=== PATIENT | female | born 1965 | race Caucasian/White ===

== ENCOUNTER → 2019-07-14 14:07 | Outpatient (CLI) | payer BC, SELFPAY ==
--- NOTE | ~2019-07-14 | US_ITS ---
EXAMINATION: US transvaginal EXAM DATE: 07/14/2019 15:00 INDICATION: Abnormal uterine bleeding. TECHNIQUE: Pelvic transvaginal sonogram was performed. There are multiple grayscale and Doppler imag es available for interpretation. There is no prior study for comparison. FINDINGS: Uterus measures 9.9 x 5.6 x 6.5 cm, with a focal region in the lower uterine segment measu ring 3 cm likely a fibroid Endometrial stripe measures 7 mm, within normal limits. There is no free pelvic fluid. Right adnexa: The right ovary is normal in size and morphology. Left adnexa: The left ovary is normal in size and morphology. IMPRESSION: 1. Borderline thickened endometrium at 7 mm. Consider follow-up. If symptoms persist, consider histo logic correlation. 2. Lower uterine segment fibroid. Reviewed, dictated and finalized at location B. [employer] AIDE IMPRESSION: 1. Borderline thickened endometrium at 7 mm. Consider follow-up. If symptoms p ersist, consider histologic correlation. 2. Lower uterine segment fibroid.
== END ==
PROVIDERS: Visit Provider Obstetrics & Gynecology
DX: N93.8 Other specified abnormal uterine and vaginal bleeding (principal); D25.9 Leiomyoma of uterus, unspecified
CPT/HCPCS: 76830

== ENCOUNTER 2019-08-31 13:46 | Outpatient (CLI) | payer BC, SELFPAY ==
[2019-08-31 14:22] LABS: Hematocrit 33.6 % (37.0-47.0); Hemoglobin 9.7 g/dL (12.0-15.0)
== END 2019-08-31 13:47 | disposition home or self-care (01) ==
PROVIDERS: Visit Provider Anesthesiology
DX: D64.9 Anemia, unspecified (principal)
CPT/HCPCS: 36415; 85014; 85018

== ENCOUNTER 2019-09-02 00:15 | Day surgery (SDC) | payer BC, SELFPAY ==
[2019-08-30 15:17] VITALS: BMI 27.5
[2019-09-02 06:05] VITALS: BP 111/61; PULSE 74; RESP 20; TEMP 36.1; O2SAT 99
[2019-09-02] MEDS: LACTATED RINGERS 1,000 ML 30 ML IV CONT (06:30)
--- NOTE | 2019-09-02 06:42 | WPDANESEPPF ---
Anes - Initial Pre Proc Eval Procedure: Operation Date: 09/02/19 07:30 Proposed Procedures p Hysteroscopy, Myosure, Cathleen Ablation - Timothy Ashton MD Date/Time: 09/02/19 06:42 Surgeon: Timothy Ashton MD Pre Op Diagnosis: anemia, mennorrhaghia, fibroids Patient Data Age: 54 Gender: F Height: 5 ft 5 in Weight: 75.7 kg Allergies Allergy/AdvReac Type Severity Reaction Status Date / Time No Known Allergies Allergy Verified 09/02/19 06:17 Home Medications Medication Instructions Recorded Confirmed Type cetirizine [Zyrtec] 10 mg PO DAILY 08/30/19 09/02/19 History norgestimate-ethinyl estradiol 1 tablet PO DAILY 08/30/19 09/02/19 History [Previfem] Patient hx anesthesia problems: none Family hx anesthesia problems: none [facility] Past Medical History Medical History (Updated 09/02/19 @ 06:42 by Keaton Gaffney MD) Anemia Overweight Surgical History Surgical History (Updated 09/02/19 @ 06:43 by Keaton Gaffney MD) H/O total hip arthroplasty Anes - Eval Final PreProcedure Day of Procedure 09/02/19 06:42 Patient weight: overweight Heart: regular rate and rhythm Lungs: clear to auscultation Airway: Mallampati scale class II Neurological: alert and oriented Last oral intake: >/= 8 hours ASA classification: II Emergent: no Anesthetic plan: proceed Anesthesia type and monitoring: general GIVS and standard monitoring Informed Consent: The patient's anesthetic plan and its attendant risks and benefits were discussed with the patient/family/POA. Questions were solicited and answers provided to the satisfaction of the patient/family/POA.
--- NOTE | 2019-09-02 07:18 | P.HP_ITS ---
History of Present Illness History of Present Illness Consent: Risks, benefits, and alternatives have been discussed and questions answered. Patient agrees to proceed with procedure. Chief complaint: anemia, mennorrhaghia, fibroids Narrative: George Neri is a 54 year old female presented to the office with heavy cycles. Hysteroscopy showed a lower uterine fibroid. Patient currently taking ocp and iron to control anemia. Last hgb 9.0 with colton atment PMFSH Past Medical History Medical History Anemia Overweight Surgical History Surgical History H/O total hip arthroplasty Meds Home Medications and Allergies Home Medications Medication Instructions Recorded Confirmed Type cetirizine [Zyrtec] 10 mg PO DAILY 08/30/19 09/02/19 History norgestimate-ethinyl estradiol 1 tablet PO DAILY 08/30/19 09/02/19 History [Previfem] Allergies Allergy/AdvReac Type Severity Reaction Status Date / Time No Known Allergies Allergy Verified 09/02/19 06:17 Vital Signs Vital Signs - 24 hr 09/02/19 06:05 Temperature 36.1 C L Pulse Rate 74 Respiratory Rate 20 Blood Pressure 111/61 Pulse Oximetry 99 Exam Const: General: no acute distress GI: GI Palp: Yes Soft to palpation : External Female Exam: normal external appearance Assessment and Plan Assessment and plan (1) Perimenopausal menorrhagia: Onset Date: ~05/2019 Code(s): N92.4 - Excessive bleeding in the premenopausal period Status: Acute Assessment and Plan: plan hysteroscopy with novasure and jessie ablation. risk and benefits reviewed with patient in detail.
--- NOTE | 2019-09-02 08:11 | SUR.OPER ---
ebl:5cc
[2019-09-02] MEDS: KETOROLAC 30 MG/ML VIAL (*BKC) IM (08:14)
[2019-09-02 08:22] VITALS: BP 107/66; PULSE 59; RESP 14; O2SAT 100
[2019-09-02 08:45] VITALS: BP 107/54; PULSE 56; RESP 14; O2SAT 100
[2019-09-02 09:15] VITALS: BP 114/48; PULSE 55; RESP 14
--- NOTE | 2019-09-02 13:45 | OP_ITS ---
DATE OF PROCEDURE: 09/02/2019 PREOPERATIVE DIAGNOSES: 1. Fibroid. 2. Anemia. 3. Menorrhagia. POSTOPERATIVE DIAGNOSES: 1. Fibroid. 2. Anemia. 3. Menorrhagia. PROCEDURE PERFORMED: Hysteroscopy with MyoSure and Cathleen ablation. SURGEON: Timothy Ashton M.D. ANESTHESIA: MAC with paracervical block. COMPLICATIONS: None. ESTIMATED BLOOD LOSS: 10 cc. DESCRIPTION OF PROCEDURE: The patient was taken to the operating room with IV running, prepped and draped in the normal sterile fashion, placed in the dorsal lithotomy position. Hilmar speculum was placed into the vagina. Anterior lip of the cervix was grasped with a single-tooth tenaculum. Uterus was sounded to 8 cm. Cervical length noted to be 4 for a uterine cavity of 4 cm. Cervix prior to sounding was injected at the 2 and 10 o'clock position with 1% lidocaine bilaterally, 5 cc. The cervix was serially dilated with Hegar dilators. The hysteroscope with MyoSure device attached introduced into the cavity and noted a lower uterine segment fibroid. The MyoSure device was activated and the shavings were obtained and sent to Pathology. The hysteroscope was then removed. MyoSure device was then set to a cavity of 4 and inserted into the uterine cavity and passed on the first attempt. The uterus was then ablated for 120 seconds. The ablation device was removed. Hysteroscope was introduced. Noted an ablated uterine cavity. All instruments were removed from the vagina. Tenaculum site noted to be hemostatic. The patient was taken to the recovery room in stable condition. Gerson I MT: Mike
== END 2019-09-02 09:25 | disposition home or self-care (01) ==
PROVIDERS: Visit Provider Obstetrics & Gynecology
PROC: 0U5B8ZZ Destruction of Endometrium, Via Natural or Artificial Opening Endoscopic (ICD-10-PCS; CPT 58563; principal; 2019-09-02 07:30)
DX: D64.9 Anemia, unspecified (principal); D25.0 Submucous leiomyoma of uterus; N92.4 Excessive bleeding in the premenopausal period
CPT/HCPCS: 58563; 88305; A9270; J1100; J1885; J2250; J2405; J2704; J3010; J7030; J7120

== ENCOUNTER → 2021-04-20 10:29 | Outpatient (CLI) | payer OTHER, SELFPAY ==
--- NOTE | ~2021-04-20 | MM_ITS ---
EXAMINATION: MM screening [facility] BI w lai HISTORY: Screening TECHNIQUE: Craniocaudal and mediolateral oblique 3-D tomosynthesis images were obtained and synthetic 2-D images were generated. CAD analysis was submitted and interpreted. COMPARISON: Comparison to multiple prior studies sequentially, with oldest reviewed study dated 02/15. BREAST PARENCHYMAL COMPOSITION: The breasts are heterogeneously dense, which may obscure small masses . FINDINGS: Stable benign-appearing mass upper inner quadrant of the left breast. There is no evidence of suspicious mass, calcification, or architectural distortion to suggest malignancy in either breast . There has been no suspicious interval change. IMPRESSION: 1. No mammographic evidence of malignancy. 2. Recommend routine screening mammography in one year. BI-RADS Category 2: Benign finding(s). Reviewed, dictated and finalized at location A. STANT TO THE VICE PRESIDENT
--- NOTE | ~2021-04-20 | DEXA_ITS ---
Bone Density Report Name: DELIA MARTINEZ Age: 55 Sex: Female Ethnicity: White Date of : 1965 Indication: postmenopausal; screening for osteoporosis; Referring Provider: PAMELA LÓPEZ Study: Bone densitometry was performed. Exam Date: April 20, 2021 Accession number: [id number] Bone Density: Region BMD T-score Z-score Classification AP Spine (L1-L4) 0.789 -2.3 -1.4 Osteopenia Femoral Neck (Left) 0.704 -1.3 -0.3 Osteopenia Total Hip (Left) 0.809 -1.1 -0.5 Osteopenia World Health Organization criteria for BMD impression classify patients as: Normal (T-score at or above -1.0), Osteopenia (T-score between -1.0 and -2.5), or Osteoporosis (T-score at or below -2.5). 10-year Fracture Risk(1): Major Osteoporotic Fracture 5.8% Hip Fracture 0.4% Reported Risk Factors: [place] (), Neck BMD=0.704, BMI=28.2 (1) FRAX(R) Version 3.08. Fracture probability calculated for an untreated patient. Fracture probability may be lower if the patient has received treatment. Clinical Information Provided by Patient: Has used the following medications: Vitamin D Patient maximum height was 65.5 Menopause Age: 55 No regular weight bearing exercise Does not regularly consume dairy products Drinks caffeinated beverages Onset of menses at age 15 Number of children 1 Impression: The patient has low bone mass, based on the Total Spine T-score. The patient has an estimated ten-year risk of hip fracture of 0.4% and an estimated ten-year risk of major fracture of 5.8%, based on the WHO FRAX algorithm. Discussion: BONE DENSITY IS LOW AT ONE OR MORE SKELETAL SITES. This patient's lowest T-score is low at one or more skeletal sites. It meets the World Health Organization's (WHO) criteria for ?low bone mass? (T-score between -1.0 and -2.5). The patient's 10-year risk of fracture as calculated by FRAX is less than the threshold where pharmacological therapy is recommended by the National Osteoporosis Foundation (NOF). However, all treatment decisions require clinical judgment and consideration of individual patient factors, including patient preferences, comorbidities, previous drug use, risk factors not captured in the FRAX model (e.g., frailty, falls, vitamin D deficiency, increased bone turnover, interval significant decline in bone density) and possible under or overestimation of fracture risk by FRAX. The patient should follow a healthful lifestyle (good nutrition with adequate calcium and vitamin D, and appropriate weight-bearing exercise). Follow-Up: Consider repeating this study in 2 to 3 years to reassess this patient's status, or sooner if there is some new clinical indication. Reported by: VICENTA on 04/20/2021 11:02:00 AM. Reviewed, dictated and finalized at location ARobert BRIONES
== END ==
PROVIDERS: Visit Provider Obstetrics & Gynecology
DX: Z12.31 Encounter for screening mammogram for malignant neoplasm of breast (principal); Z13.820 Encounter for screening for osteoporosis; M85.88 Other specified disorders of bone density and structure, other site; M85.852 Other specified disorders of bone density and structure, left thigh
CPT/HCPCS: 77063; 77067; 77080